=== PATIENT | male | born 1985 | race African-American/Black ===

== ENCOUNTER 2023-12-08 12:53 | Emergency (ER) | payer MEDICAID, OTHER ==
[~2023-12-08] VITALS: Ht 175.3 cm; Wt 66.0 kg
[2023-12-08 12:57] VITALS: O2SAT 95
[2023-12-08] MEDS: MORPHINE SULFATE 4 MG/ML INJ (FOR IV/IM USE) IV STA (13:34)
[2023-12-08 13:44] LABS: CHLORIDE 104 mEq/L (98-107); SODIUM 134 mEq/L (136-145)
[2023-12-08 13:45] LABS: CALCIUM 9.4 mg/dL (8.7-10.4); CARBON DIOXIDE 25 mEq/L (21-32)
[2023-12-08 13:50] LABS: CREATININE 0.9 mg/dL (0.6-1.3); GLUCOSE 102 mg/dL (70-105); UREA NITROGEN BLOOD 9 mg/dL (9-23)
[2023-12-08 13:52] LABS: ALANINE AMINOTRANSFERASE 17 IU/L (10-49); ASPARTATE AMINOTRANSFERASE 31 IU/L (<34); BILIRUBIN TOTAL 0.3 mg/dL (0.1-1.0); PROTEIN TOTAL 7.6 g/dL (6.0-8.3)
[2023-12-08 13:56] LABS: TROPONIN I HIGH SENSITIVITY 10 ng/L (3.0-53)
[2023-12-08 13:58] LABS: BASOPHILS % 0.2 % (0.0-2.0); DIFFERENTIAL COMMENT 0; HEMATOCRIT. 30.7 % (42.0-52.0); HEMOGLOBIN. 9.8 g/dL (14.0-18.0); LYMPHOCYTES % 31.8 % (20.0-50.0); MEAN CORPUSCULAR HEMOGLOBIN 22.9 pg (28.0-32.0); MEAN CORPUSCULAR VOLUME 71.6 fL (80.0-94.0); MEAN PLATELET VOLUME 7.1 fl (7.4-10.4); MONOCYTES % 7.9 % (2.0-8.0); NEUTROPHILS % 57.1 % (40.0-76.0); PLATELET 689 x1000/uL (130-400); RED BLOOD CELL COUNT 4.29 mill/uL (4.7-6.1); RED CELL DISTRIBUTION WIDTH 20.1 % (11.6-14.6)
[2023-12-08 14:01] LABS: INR 1.1
[2023-12-08] MEDS: MORPHINE SULFATE 4 MG/ML INJ (FOR IV/IM USE) IV ONE ×2 (16:52→22:49)
[2023-12-08] MEDS: PIPERACILLIN/TAZO 3.375G/50ML 50 ML IV STA (16:52)
[2023-12-08] MEDS: VANCOMYCIN 1G PREMIX 200 ML IV STA (17:23)
[2023-12-08] MEDS: HYDROCODONE/ACETAMINOPHEN 5/325MG TABLET PO ONE (19:12)
[2023-12-08 22:30] VITALS: BP 109/74; PULSE 97; RESP 16; TEMP 37.05852; O2SAT 99
== END 2023-12-08 22:58 | disposition short-term general hospital (02) ==
LOC: ER 12:53 → CANBEDREQ 19:20 → ER 22:58
DX: J18.9 Pneumonia, unspecified organism (principal); J90 Pleural effusion, not elsewhere classified; Z85.9 Personal history of malignant neoplasm, unspecified
CPT/HCPCS: 80053; 83880; 85025; 85610; 84484; 36415; 71045; 96368; 96365; 96375; 96376; 99285; J2543; J3370; J2270; Z7610